=== PATIENT | male | born 1960 | race African-American/Black ===

== ENCOUNTER 2020-02-22 13:22 | Emergency (ER) | payer OTHER, SELFPAY ==
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
[2020-02-22 13:28] VITALS: BP 135/84; PULSE 60; RESP 14; TEMP 36.3; O2SAT 100
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
[2020-02-22 15:38] VITALS: BP 124/80; PULSE 81; RESP 20; TEMP 36.8; O2SAT 99
== END 2020-02-22 15:39 | disposition home or self-care (01) ==
PROVIDERS: Emergency Provider Emergency Medicine
DX: S16.1XXA Strain of muscle, fascia and tendon at neck level, initial encounter (principal); V43.52XA Car driver injured in collision with other type car in traffic accident, initial encounter
CPT/HCPCS: 72125; 99284